=== PATIENT | female | born 1940 | race Caucasian/White ===

== ENCOUNTER 2024-08-05 13:18 | Emergency (ER) | payer MEDICARE, OTHER, SELFPAY ==
[2024-08-05 13:28] VITALS: BP 157/85
[2024-08-05 13:53] LABS: % Basophils 0.3 % (0-2); % Eosinophils 1.5 % (0-6); % Immature Granulocytes 0.2 % (0-0.5); % Lymphocytes 17.2 % (20.5-51.1); % Neutrophils 72.8 % (42.2-75.2); Absolute Eosinophils 0.1 10^3/uL (0-0.7); Absolute Lymphocytes 1.1 10^3/uL (1.2-3.4); Absolute Monocytes 0.5 10^3/uL (0.1-0.6); Absolute Neutrophils 4.7 10^3/uL (1.4-6.5); Hematocrit 37.8 % (37.0-47.0); Hemoglobin 12.9 g/dL (12.0-16.0); Mean Corp Hgb Conc. 34.1 g/dL (33.0-37.0); Mean Corpuscular Hgb 31.2 pg (27.0-31.0); Mean Corpuscular Volume 91.5 fL (81.0-99.0); Nucleated Red Blood Cells % 0 %; Platelet Count 265 10^3/uL (130-400); Red Blood Cell Count 4.13 10^6/uL (4.20-5.40); Red Cell Dist. Width 14.5 % (11.5-14.5); White Blood Cell Count 6.5 10^3/uL (4.8-10.8)
[2024-08-05 14:30] LABS: ALT (SGPT) 14 U/L (0-35); AST (SGOT) 26 U/L (14-36); Albumin 4.9 g/dl (3.5-5.0); Alkaline Phosphatase 78 U/L (38-126); Blood Urea Nitrogen 13 mg/dl (7-17); Calcium 9.9 mg/dl (8.4-10.2); Carbon Dioxide 28 mmol/L (22-30); Chloride 97 mmol/L (98-107); Glucose 106 mg/dl (70-99); Potassium 4.8 mmol/L (3.5-5.1); Sodium 136 mmol/L (135-145); Total Bilirubin 0.6 mg/dl (0.2-1.3); Total Protein 7.7 g/dl (6.3-8.2); eGFR > 60.00
[2024-08-05 15:14] LABS: Lipase 74 U/L (23-300)
[2024-08-05 15:58] VITALS: BP 138/87
--- NOTE | 2024-08-05 15:58 | ED.GENMED ---
History of Present Illness
General
Chief Complaint: Abdominal Symptoms
Source: patient
Exam Limitations: none
Time Seen by Provider: 08/05/24 15:39
History of Present Illness
History of Present Illness:
84-year-old female complaining of intermittent episodes of uncontrolled vomiting. Episodes of constipation. Has had occasional slight bowel movements but minimal nature. Has been going on for 4 weeks. Last vomited this morning. Some crampy
intermittent abdominal pain mostly lower abdomen. 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 No fever no chest pain shortness of breath back pain or other complaints
Past History
Past History
ED Past Medical History: Hypercholesterolemia
ED Past Surgical History: Orthopedic
Review of Systems
Review of Systems
All Other Systems: Not applicable
Constitutional: Denies fever
Respiratory: Reports no symptoms
Cardiac: Reports no symptoms
Phy Exam
Physical Exam
Physical Exam:
GENERAL: Alert and oriented in no apparent distress
EYE: Orbits normal.
NECK: Supple
CARDIAC: Regular rate and rhythm without any obvious murmurs.
LUNGS: Clear breath sounds,normal
ABDOMEN: Soft, bowel sounds present but decreased diffusely. No acute localized tenderness. No rebound or guarding no mass or hernia. Rectal exam with a moderate amount of soft stool. Carefully broken up. No hard fecal impaction however
NEUROLOGICAL: Alert and oriented , grossly non-focal
SKIN: Warm and dry, no rash or lesion, no discoloration, skin intact.
MUSCULOSKELETAL: No edema,no deformity.Good color
PSYCH: Normal and appropriate interaction.
Course
Orders/Labs/Results
Orders:
Orders
08/05/24 13:42
Complete Blood Count/With Diff Urgent
Comprehensive Metabolic Panel Urgent
Lipase Urgent
08/05/24 15:55
IV Insert/Care/Rem.- Treatment PRN
0.9% Sodium Chloride 500 ml [Nss] 500 ml IV BOLUS
Iohexol [Omnipaque] See Protocol PO NOW STA
Ondansetron Injectable [Zofran] 4 mg IV NOW STA
08/05/24 15:56
CT Abd/pel W Iv And Oral Contr Urgent
Comment:
Reason For Exam: Lower abdominal pain/constipation/nausea vomiting
Abnormal Lab Results
08/05/24
13:42
RBC 4.13 L 10^6/uL
(4.20-5.40)
MCH 31.2 H pg
(27.0-31.0)
Absolute Lymphs (auto) 1.1 L 10^3/uL
(1.2-3.4)
Lymphocytes % 17.2 L %
(20.5-51.1)
Chloride 97 L mmol/L
(98-107)
Glucose 106 H mg/dl
(70-99)
08/05/24 13:42
08/05/24 13:42
Vital Signs
Initial and Last Documented VS:
Initial Vital Signs
Temp Pulse Resp BP Pulse Ox
98 F 90 16 157/85 99
08/05/24 13:28 08/05/24 13:28 08/05/24 13:28 08/05/24 13:28 08/05/24 13:28
Last Documented Vital Signs
Temp Pulse Resp BP Pulse Ox
98 F 67 16 146/73 96
08/05/24 13:28 08/05/24 17:11 08/05/24 17:11 08/05/24 18:00 08/05/24 18:00
MDM/Problems Addressed
Differential Diagnosis Includes:
Patient describing waves of nausea vomiting constipation abdominal bloating. Differential would include SBO diverticulitis fecal impaction/constipation related issues. Workup in progress. CT scan pending.
*Radiology
Radiology exam reviewed: radiology read reviewed (No acute findings. Possible mild colitis)
*Pulse Oximetry
Patient hypoxic: no
*Critical Care Note
Total Time (30-74mins, 75-104mins- exclusive of procedures): Not Applicable
Update Note
Update Note:
Patient had a significant bowel movement feels much better. CT stable. Copy of report given to patient to follow-up small renal lesion and to follow-up with GI.
ED Attending Note
-
Portions of this chart may have been created with voice recognition software.� Occasional wrong word or��sound alike� substitutions may have occurred due to the inherent limitations of voice recognition software.
Discharge Plan
Departure
Patient Disposition: Home (Routine Discharge)
Date of Disposition: 08/05/24
Time of Disposition: 19:42
Patient with high blood pressure during this ER visit?: Yes
Discharge Problem:
Abdominal pain/constipation, Possible mild colitis
Instructions: Constipation, Adult (DC), Abdominal Pain, BLOOD PRESSURE
Referrals:
Jesus Medina MD [Family Provider] - Follow up in 2-3 days
Isela Leblanc DO [Active] - Next open appointment
Activity Restrictions/Additional Instructions:
To consider follow-up ultrasound of your kidney in the future
Interventions
Interventions:
*Risk Screen - Suicide Last Done: 08/05/24 13:28
*General Assessment Last Done: 08/05/24 16:04
*Neglect/Abuse Screening Last Done: 08/05/24 13:28
*ED- Fall Risk Assessment Last Done: 08/05/24 16:04
*ED COVID-19 Vaccine History Last Done: 08/05/24 16:04
OG-Iqtgnr-Bxwluwasma Assessment Last Done: 08/05/24 17:10
Discharge Date and Time
Print Language: SAO TOMEAN
[2024-08-05 16:04] VITALS: BMI 23.3
[2024-08-05] MEDS: NSS 500 IV (16:12)
[2024-08-05] MEDS: ZOFRAN 4 MG IV (16:13)
[2024-08-05] MEDS: OMNIPAQUE 50 ML PO (16:13)
[2024-08-05 17:00] VITALS: BP 145/77
[2024-08-05 18:00] VITALS: BP 146/73
[2024-08-05 20:01] VITALS: BP 125/70
== END 2024-08-05 20:12 | disposition home or self-care (01) ==
LOC: EMR 13:18
PROVIDERS: Emergency Medicine; EMERGENCY PHYSICIAN Emergency Medicine; FAMILY PHYSICIAN Family Medicine
DX: R10.9 Unspecified abdominal pain (principal); K59.00 Constipation, unspecified; E78.00 Pure hypercholesterolemia, unspecified
CPT/HCPCS: 99284; 74177; 80053; 83690; 85025; Q9967